=== PATIENT | female | born 1955 | race Caucasian/White ===

== ENCOUNTER 2017-06-21 09:04 | Outpatient (CLI) | payer OTHER ==
--- NOTE | 2017-06-21 10:21 | CT ---
CT ABDOMEN WITH AND WITHOUT CONTRAST: Technique: Multiple axial tomograms were obtained through the abdomen without contrast enhancement. Oral contrast was given. Post contrast images were obtained in the portal venous phase injecting 100 cc of Isovue 370. History: Abdominal pain. Abdominal mass on the left. FINDINGS: Lung bases are clear. On the precontrast exam there is no evidence of urinary tract calcification. There are calcified gal lstones seen with at least one large gallstone seen dependent in the gallbladder measuring up to 2 c m. Gallbladder is mildly distended. No significant pericholecystic edema. Asymmetric density in the posterior left lobe of the liver on post contrast images suggests a focal area of fatty sparring within the liver. The vessels normally course through this region of the live r with no evidence of mass effect. Liver is otherwise unremarkable. Spleen is unremarkable. Pancreas is unremarkable. Adrenal glands appear normal. Kidneys are unremarkable with no evidence of enhanci ng mass. The visualized small bowel loops appear normal. The appendix is partially imaged and appears unremar kable. Entire small and large bowel are not imaged on this abdomen only study. The abdominal aorta is normal caliber. No adenopathy identified. IMPRESSION: 1. Cholelithiasis. 2. Subtle area of asymmetric attenuation in the left lobe of the liver suggests an area of fatty spa rring. 3. Otherwise, no acute process. POS: [facility]
[2017-06-21] MEDS ORDERED: Iopamidol 370 76% 100 ML VIAL ONE (13:43)
== END 2017-06-21 09:05 | disposition home or self-care (01) ==
LOC: CT 09:04
PROVIDERS: ATTEND Family Medicine
DX: R19.00 Intra-abdominal and pelvic swelling, mass and lump, unspecified site (principal); K80.20 Calculus of gallbladder without cholecystitis without obstruction; K76.0 Fatty (change of) liver, not elsewhere classified
CPT/HCPCS: 74170

== ENCOUNTER 2018-03-15 08:19 | Outpatient (CLI) | payer OTHER ==
--- NOTE | 2018-03-15 09:46 | MMO ---
BILATERAL SCREENING MAMMOGRAM: Date: 03/15/18 This is being treated as a baseline study as we could not obtain the previous exams. This patient's mammogram was interpreted with the assistance of computer-aided detection. FINDINGS: Scattered fibroglandular changes of both breasts are noted. Benign calcifications seen in both breast s. There is a nodular density, which is obscured, in upper outer right breast. It measures approximat sally 8-9 mm. IMPRESSION: BIRADS 0: Incomplete: Need Additional Imaging Evaluation and/or Prior Mammograms for Comparison Further imaging required. In this case, focal spot views of the right breast, to be followed by [facility] [place]. The facility will notify patient of need for additional imaging services. POS: [facility]
== END 2018-03-15 08:20 | disposition home or self-care (01) ==
LOC: SCSMAMMO 08:19
PROVIDERS: ATTEND Family Medicine
DX: Z12.31 Encounter for screening mammogram for malignant neoplasm of breast (principal)
CPT/HCPCS: 77067

== ENCOUNTER 2018-04-20 07:56 | Outpatient (CLI) | payer OTHER | END 2018-04-20 07:57 | disposition home or self-care (01) | LOC: BICMAMMO 07:56 | PROVIDERS: ATTEND Family Medicine | DX: R92.2 Inconclusive mammogram (principal) | CPT/HCPCS: G0279 ==

== ENCOUNTER 2018-07-27 07:32 | Day surgery (SDC) | payer OTHER ==
[2018-07-26 13:49] VITALS: BMI 34.6
[2018-07-27 08:10] VITALS: BP 136/78; TEMP 98.4
--- NOTE | 2018-07-27 10:27 | RAD ---
CERVICAL SPINE MYELOGRAM INDICATION: Cervical radiculopathy. RADIATION EXPOSURE DATA: 0.3 minutes, 28 mGy*^m2. PROCEDURE: After informed consent had been obtained, the patient was escorted to the interventional suite and pl aced on the procedural table. [employer] imaging was performed. The patient was placed into a prone posi tion. Skin on the low back was then prepped and draped in the standard sterile fashion and topical a nd regional soft tissue anesthesia was achieved with 1% lidocaine and sodium bicarbonate. L2-3 righ t interlaminar approach was selected, and a 22 gauge needle was uneventfully advanced into the thecal sac with clear color CSF. Subsequently, 9 cc Isovue M-300 was instilled into the thecal sac under r eal time fluoroscopy. Appropriate opacification of thecal sac demonstrated with imaging stored for c onfirmation. The needle was then removed from the patient. The patient tolerated the procedure well and was then transferred to CT to undergo subsequent myelogram. Reference separate report for full details. IMPRESSION: Technically successful cervical myelogram as detailed above. POS: [facility]
--- NOTE | 2018-07-28 07:40 | CT ---
CERVICAL SPINE MYELOGRAM WITH CONTRAST CT CERVICAL SPINE WITH CONTRAST: INDICATION: Cervical radiculopathy, neck pain, numbness. FINDINGS: Multilevel anterior metallic fusion spans the C4 through C7 segment. Anterior metallic PA AND LATERA L VIEWS OF THE CHEST: and screw fixation of C4 and C5 with intervening disk space prosthesis and osse ous incorporation of the iroquois disk space as well as partial osseous fusion of the posterior element s is seen. There is a separate anterior metal plate, which demonstrates an angulated orientation and evidence of a fragmented partial remnant of a prior screw adjacent the hardware of the cephalad aspe ct of the C6 segment. Intervening disk space prosthesis is present with osseous incorporation of the iroquois disk space. There is straightening of the normal cervical curvature. No significant malalig nment otherwise demonstrated. There is no central canal stenosis of C1-2 or C2-3. The C2-3 level reveals uncinate process hypertro phy producing mild right foraminal narrowing. There is no significant left foraminal narrowing. C3-4: No high-grade central canal stenosis. There is minimal right foraminal narrowing due to uncin ate process. Left foramen is patent. C4-5: There is a broad-based left asymmetric osteophyte ridge with mild narrowing of the central can al and ventral effacement of the left hemicord. No significant left foraminal stenosis. There is mi ld narrowing of the right neural foramen due to uncinate process and facet hypertrophy. C5-6: There is a prominent-sized central osteophyte which effaces the ventral aspect of the cervica l spinal cord, centrally. There is mild central canal and mild left foraminal narrowing. Moderate r ight neural foraminal stenosis is present. C6-7: Right asymmetric osteophyte ridge is present. There is moderate right and mild left neural fo raminal stenosis. C7-T1: No high-grade central canal or neural foraminal stenosis. IMPRESSION: Postoperative cervical spine with prominent multilevel degenerative change as outlined above. POS: RADHA
== END 2018-07-27 12:00 | disposition home or self-care (01) ==
LOC: RAD 07:32
PROVIDERS: ATTEND Family Medicine
PROC: B01B1ZZ Fluoroscopy of Spinal Cord using Low Osmolar Contrast (ICD-10-PCS; principal; 2018-07-27)
DX: M54.12 Radiculopathy, cervical region (principal); M25.78 Osteophyte, vertebrae; M48.02 Spinal stenosis, cervical region; Z79.82 Long term (current) use of aspirin; Z79.84 Long term (current) use of oral hypoglycemic drugs; Z79.899 Other long term (current) drug therapy; Z98.1 Arthrodesis status
CPT/HCPCS: 62302; 72126

== ENCOUNTER 2018-11-20 06:08 | Inpatient (IN) | payer OTHER ==
[2018-11-20 07:37] LABS: Hemoglobin 14.2 g/dL (12.0-16.0); Mean Corpuscular HGB CONC 33.9 g/dL (32.0-36.0); Mean Corpuscular Hemoglobin 31.7 pg (27.0-31.0); Mean Corpuscular Volume 93.5 fL (78.0-98.0); Mean Platelet Volume 8.9 fL (7.4-10.4); Platelet Count 236 thou/uL (130-400); RBC Distribution Width 11.5 % (11.5-14.5); Red Blood Cell (RBC) Count 4.47 mill/uL (4.20-5.40); White Blood Cell (WBC) Count 8.7 thou/uL (4.8-10.8)
[2018-11-20] MEDS ORDERED: CEFAZOLIN 2 GM/50 ML BAG ONE (07:52)
[2018-11-20 07:56] LABS: Anion Gap 15 mmol/L (10-20); BUN (Urea Nitrogen) 12 mg/dL (9.8-20.1); Calc. Creatinine Clearance 0 mL/min (70-130); Calcium 9.7 mg/dL (7.8-10.44); Carbon Dioxide 23 mmol/L (23-31); Chloride 106 mmol/L (98-107); Estimated GFR-MDRD 82; Glucose 226 mg/dL (80-115); Sodium 140 mmol/L (136-145)
[2018-11-20] MEDS ORDERED: Fentanyl 100 MCG/2 ML VIAL ONE ×4 (08:31→10:59)
[2018-11-20] MEDS ORDERED: Sodium Chloride 0.9% 10 ML ONE (08:50)
[2018-11-20] MEDS ORDERED: Promethazine HCl 25 MG/ML VIAL IM PRN (09:59)
[2018-11-20] MEDS ORDERED: Promethazine HCl 25 MG/ML VIAL SLOW IVP PRN (09:59)
[2018-11-20] MEDS ORDERED: Ondansetron HCl/PF 4 MG/2 ML Vial IVP PRN (09:59)
[2018-11-20] MEDS ORDERED: Meperidine HCl/PF 25 MG/ML VIAL SLOW IVP PRN (09:59)
--- NOTE | 2018-11-20 10:30 | OP ---
DATE OF PROCEDURE: 11/20/2018 [facility]: Damion Jarrell PA-C. PROCEDURES PERFORMED: Exploration of spinal fusion C4 through C7, attempted removal of hardware C4 through C7, anterior cervical diskectomy C3-C4, interbody arthrodesis, intervertebral biomechanical device, local morselized autograft, demineralized bone matrix, attempted anterior instrumentation C3-C4. DESCRIPTION OF PROCEDURE: The patient was brought to the operating room and intubated. She was positioned supine with the head in modest extension on a gel-filled donut. Incision was reopened and we identified the previous hardware and the extensive osteophytic change from C2 to C4. The hardware was largely incorporated with bone and additionally the C6 and C7 plates were overlapping and seemed to be sharing at least one screw. It would have been quite destructive to continue to remove bone in an effort to remove these plates and we therefore aborted further efforts to remove the hardware. Additionally, the fusion did seem to be quite solid as best we could explore. We turned our attention to the C3-C4 level and debrided extensive anterior osteophytic disease from the C2 level to the C4 level. The osteophytes were completely decompressed. We then removed the intervertebral disk at C3-C4 completely decompressing the neural elements. The bony endplates were then decorticated for the first arthrodesis and appropriate-sized anterior biomechanical PEEK device was brought into the field, filled with demineralized bone matrix and local morselized autograft and tapped in place securely at C3-C4. We next explored the C3 and C4 vertebral bodies in an effort to see if a plate could be placed and distraction pins were used in an effort to explore this. We ultimately concluded that there was not sufficient bony material at the C4 level to accommodate additional screws and therefore no new plate was placed. The wound was extensively irrigated, and maximum hemostasis was secured. The wound closed in anatomic layers over the drain. Job ID: [id number]
[2018-11-20 11:51] VITALS: BMI 32.8
[2018-11-20] MEDS ORDERED: HYDROcodone/Acetaminophen 5/325 mg Tablet PO PRN (12:19)
[2018-11-20] MEDS ORDERED: Acetaminophen 325 MG TAB PO PRN (12:19)
[2018-11-20] MEDS ORDERED: Sodium Chloride 0.65% Nasal 44 ML BOT EA NARE PRN (12:19)
[2018-11-20] MEDS ORDERED: Loperamide HCl 2 MG CAP PO PRN (12:19)
[2018-11-20] MEDS ORDERED: Bisacodyl 10 MG SUPP PR PRN (12:19)
[2018-11-20] MEDS ORDERED: Eucerin (Mineral Oil/Petrolatum,White) 30 gm Jar TOP PRN (12:19)
[2018-11-20] MEDS ORDERED: Diabetic Tussin 200 MG/10 ML UDCUP PO PRN (12:19)
[2018-11-20] MEDS ORDERED: Senokot S 8.6-50 MG TAB PO PRN (12:19)
[2018-11-20] MEDS ORDERED: Cepastat Lozenges 1 LOZ PO PRN (12:19)
[2018-11-20] MEDS ORDERED: Artificial Tear Sol 15 ML BOT EA EYE PRN (12:19)
[2018-11-20] MEDS ORDERED: Zolpidem Tartrate 5 MG TAB PO PRN (12:19)
[2018-11-20] MEDS ORDERED: hydrALAZINE 20 MG/ML VIAL SLOW IVP PRN (12:19)
[2018-11-20] MEDS ORDERED: Loratadine 10 MG TAB PO PRN (12:19)
[2018-11-20] MEDS ORDERED: Calcium Carbonate 500 MG ChewTAB PO PRN (12:19)
[2018-11-20] MEDS ORDERED: Dextrose 50% Abboject 50 ML SYRINGE SLOW IVP PRN (12:20)
[2018-11-20] MEDS ORDERED: Dextrose 5% in Water 1,000 ML IV PRN (12:20)
[2018-11-20] MEDS ORDERED: HumaLOG 300 UNITS/3 ML VIAL SC PRN (12:20)
[2018-11-20] MEDS ORDERED: diphenhydrAMINE 50 MG/ML VIAL IVP PRN (12:24)
[2018-11-20] MEDS ORDERED: diphenhydrAMINE 25 MG CAP PO PRN (12:24)
[2018-11-20] MEDS ORDERED: traMADol HCl 50 MG TAB PO PRN ×2 (12:24)
[2018-11-20] MEDS ORDERED: Morphine 4 MG/ML VIAL SLOW IVP PRN ×2 (12:24→12:29)
[2018-11-20] MEDS ORDERED: Ondansetron PF 4 MG/2 ML Vial IVP PRN (12:24)
[2018-11-20] MEDS ORDERED: tiZANidine HCl 4 MG TAB PO PRN (12:24)
[2018-11-20] MEDS ORDERED: HYDROcodone/Acetaminophen 10/325 mg Tablet PO PRN (12:24)
[2018-11-20] MEDS ORDERED: Mag-Al 1200 mg/1200 mg/30 ML UDCUP PO PRN (12:24)
[2018-11-20] MEDS ORDERED: Milk Of Magnesia 30 ML UDCUP PO PRN (12:24)
[2018-11-20] MEDS: HYDROcodone/Acetaminophen 10/325 mg Tablet PO PRN ×2 (13:01→19:15)
--- NOTE | 2018-11-20 13:12 | PDOC.PN ---
- Subjective Encounter Start Date: 11/20/18 Encounter Start Time: 12:00 -: old records requested/rev Patient seen and examined. pt underwent ACDF today, she has cervical collar in place and she has drain he has headache for now Denies chest pain, dyspnea - Objective Resuscitation Status - Order Detail: 11/20/18 12:23 Resuscitation Status Routine Resuscitation Status: FULL: Full Resuscitation MAR Reviewed: Yes Vital Signs & Weight: Vital Signs (12 hours) Temp Pulse Resp BP Pulse Ox 11/20/18 11:53 98 11/20/18 11:25 97.7 F 55 L 18 114/67 98 Weight Weight 185 lb Result Diagrams: 11/20/18 07:22 11/20/18 07:22 Additional Labs: old [employer] record reviewed Phys Exam - Physical Examination Constitutional: NAD HEENT: PERRLA, moist MMs, sclera anicteric Neck: no JVD, supple cervical colar+, drain+, surgical site with dressing Respiratory: no wheezing, no rales, no rhonchi Cardiovascular: RRR, no significant murmur, no rub Gastrointestinal: soft, non-tender, no distention, positive bowel sounds Musculoskeletal: no edema, pulses present Neurological: non-focal, normal sensation, moves all 4 limbs Lymphatic: no nodes Psychiatric: normal affect, A&O x 3 Skin: no rash, normal turgor Dx/Plan (1) S/P cervical discectomy Code(s): Z98.890 - OTHER SPECIFIED POSTPROCEDURAL STATES Status: Acute (2) Diabetes type 2, controlled Code(s): E11.9 - TYPE 2 DIABETES MELLITUS WITHOUT COMPLICATIONS Status: Chronic (3) Hypertension Code(s): I10 - ESSENTIAL (PRIMARY) HYPERTENSION Status: Chronic (4) Obesity (BMI 30.0-34.9) Code(s): E66.9 - OBESITY, UNSPECIFIED Status: Chronic - Plan cont current plan of care * currently BP is on lower side, will hold her lisinopril * will start metfromin for now * will add hyperglycemia protocol treatment for now * medication reviewed as below * symptomatic treatment * home medication reconciled * code status full code * pepcid for GI prophylaxis. Review of Systems - Review of Systems Constitutional: negative: fever, chills, sweats, weakness, malaise, other ENT: negative: Ear Pain, Ear Discharge, Nose Pain, Nose Discharge, Nose Congestion, Mouth Pain, Mouth Swelling, Throat Pain, Throat Swelling, Other Respiratory: negative: Cough, Dry, Shortness of Breath, Hemoptysis, SOB with Excertion, Pleuritic Pain, Sputum, Wheezing Cardiovascular: negative: chest pain, palpitations, orthopnea, paroxysmal nocturnal dyspnea, edema, light headedness, other Gastrointestinal: negative: Nausea, Vomiting, Abdominal Pain, Diarrhea, Constipation, Melena, Hematochezia, Other Genitourinary: negative: Dysuria, Frequency, Incontinence, Hematuria, Retention , Other Musculoskeletal: Neck Pain. negative: Shoulder Pain, Arm Pain, Back Pain, Hand Pain, Leg Pain, Foot Pain, Other Skin: negative: Rash, Lesions, Duncan, Bruising, Other - Medications/Allergies Allergies/Adverse Reactions: Allergies Allergy/AdvReac Type Severity Reaction Status Date / Time No Known Allergies Allergy Verified 11/17/18 14:08 Medications: Current Medications Acetaminophen (Tylenol) 650 mg PO Q6H PRN PRN Reason: Mild Pain (1-3) Hydrocodone Bitart/Acetaminophen ([place] 5/325) 1 tab PO Q4H PRN PRN Reason: Moderate Pain (4-6) Hydrocodone Bitart/Acetaminophen ([place] 10/325) 1 tab PO Q4H PRN PRN Reason: PAIN (1-3) Hydrocodone Bitart/Acetaminophen ([place] 10/325) 2 tab PO Q4H PRN PRN Reason: PAIN (4-6) Last Admin: 11/20/18 13:01 Dose: 2 tab Al Hydroxide/Mg Hydroxide (Maalox) 30 ml PO Q4H PRN PRN Reason: Heartburn or Indigestion Artificial Tears (Tears Renewed 15ml Bottle) 2 drop EA EYE PRN PRN PRN Reason: Dry Eyes Bisacodyl (Dulcolax) 10 mg [place] DAILYPRN PRN PRN Reason: Constipation Calcium Carbonate (Tums) 1,000 mg PO Q4H PRN PRN Reason: Heartburn or Indigestion Dextrose/Water (Dextrose 50%) 25 gm SLOW IVP PRN PRN PRN Reason: Hypoglycemia Diphenhydramine HCl (Benadryl) 25 mg PO Q6H PRN PRN Reason: Itching Diphenhydramine HCl (Benadryl) 25 mg IVP Q6H PRN PRN Reason: Itching Famotidine (Pepcid) 20 mg PO BID [facility] Glucagon (Glucagon) 1 mg IM PRN PRN PRN Reason: Hypoglycemia Guaifenesin (Robitussin Sf) 200 mg PO Q4H PRN PRN Reason: Cough Hydralazine HCl (Apresoline) 10 mg SLOW IVP Q4H PRN PRN Reason: SBP > 180 and HR < 70 Dextrose/Water (D5w) 1,000 mls @ 0 mls/hr IV .Q0M PRN PRN Reason: Hypoglycemia Sodium Chloride (Normal Saline 0.9%) 1,000 mls @ 75 mls/hr IV .[id number] [facility] Cefazolin Sodium/Dextrose 2 gm (/ Device) 50 mls @ 100 mls/hr IVPB 0100,0900, 1700 [facility] Stop: 11/21/18 01:29 Insulin Human Lispro (Humalog) 0 units SC .MODERATE SLIDING SC PRN PRN Reason: Moderate Correctional Scale Insulin Human Lispro (Humalog) 0 units SC .BEDTIME SLIDING SC PRN PRN Reason: Bedtime Correctional Scale Lisinopril (Zestril) 30 mg PO DAILY [facility] Loperamide HCl (Imodium) 2 mg PO PRN PRN PRN Reason: Diarrhea/Loose Stools Loratadine (Claritin) 10 mg PO DAILYPRN PRN PRN Reason: Sinus Symptoms Magnesium Hydroxide (Milk Of Magnesium) 30 ml PO Q12H PRN PRN Reason: Constipation Metformin HCl (Glucophage) 1,000 mg PO BID[facility] Mineral Oil/White Petrolatum (Eucerin Cream) 0 gm TOP BIDPRN PRN PRN Reason: Dry Skin Morphine Sulfate (Morphine) 4 mg SLOW IVP Q1H PRN PRN Reason: SEVERE BREAKTHROUGH PAIN Morphine Sulfate (Morphine) 2 mg SLOW IVP Q1H PRN PRN Reason: Moderate Breakthrough Pain Ondansetron HCl (Zofran) 4 mg IVP Q24H PRN PRN Reason: Nausea/Vomiting Senna/Docusate Sodium (Senokot S) 2 tab PO BID PRN PRN Reason: Constipation Sodium Chloride ([place] Nasal [place] 0.65%) 0 ml EA NARE QIDPRN PRN PRN Reason: Nasal Congestion Sodium Chloride (Flush - Normal Saline) 10 ml IVF PRN PRN PRN Reason: Saline Flush Throat Lozenges (Cepastat Lozenges) 1 kofi PO Q2H PRN PRN Reason: Sore Throat Tizanidine HCl (Zanaflex) 4 mg PO Q6H PRN PRN Reason: MUSCLE SPASM Tramadol HCl (Ultram) 50 mg PO Q6H PRN PRN Reason: PAIN (1-3) Tramadol HCl (Ultram) 100 mg PO Q6H PRN PRN Reason: PAIN (4-6) Zolpidem Tartrate (Ambien) 5 mg PO HSPRN PRN PRN Reason: Insomnia
[2018-11-20] MEDS ORDERED: Glycopyrrolate 0.2 MG/ML 5 ML SYRINGE ONE (16:36)
[2018-11-20] MEDS ORDERED: Rocuronium Bromide 10 MG/ML (10ML VIAL) ONE (16:36)
[2018-11-20] MEDS ORDERED: Dexamethasone 20 MG/5 ML VIAL ONE (16:36)
[2018-11-20] MEDS ORDERED: Ketorolac Tromethamine 30 MG/ML VIAL ONE (16:36)
[2018-11-20] MEDS ORDERED: Lidocaine 1% PF 5 ML VIAL ONE (16:36)
[2018-11-20] MEDS ORDERED: Ondansetron PF 4 MG/2 ML Vial ONE (16:36)
[2018-11-20] MEDS ORDERED: PROPOFOL 200 MG/20 ML VIAL ONE (16:36)
[2018-11-20] MEDS: metFORMIN 500 MG TAB PO SCH (17:17)
[2018-11-20] MEDS: CEFAZOLIN 2 GM/50 ML-DEXTROSE 2 GM in Premix Bag 1 BAG IVPB SCH (17:18)
[2018-11-20] MEDS: Sodium Chloride 0.9% 1,000 ML IV SCH (18:50)
[2018-11-20] MEDS: Famotidine 20 MG TAB PO SCH (20:43)
[2018-11-20] MEDS: HumaLOG 300 UNITS/3 ML VIAL SC PRN (20:46)
[2018-11-21] MEDS: CEFAZOLIN 2 GM/50 ML-DEXTROSE 2 GM in Premix Bag 1 BAG IVPB SCH (00:38)
[2018-11-21] MEDS: Sodium Chloride 0.9% 1,000 ML IV SCH ×2 (00:42→04:36)
[2018-11-21] MEDS: HumaLOG 300 UNITS/3 ML VIAL SC PRN (06:06)
[2018-11-21 07:57] VITALS: BP 135/79; TEMP 98.7
--- NOTE | 2018-11-21 08:03 | DIS ---
DATE OF ADMISSION: 11/20/2018 DATE OF DISCHARGE: HOSPITAL COURSE: The patient is a 63-year-old female, who underwent C3-C4 ACDF. Unfortunately secondary to prior hardware unable to be removed, she was unable to get anterior plating. She was once decompressed and interbody device was placed. She was placed in a cervical collar. She should wear the cervical collar at all times for the next 6 weeks. The patient was provided with a Churdan collar for showering. Following her surgery, she was transitioned to the [facility] floor, where her pain was well controlled with p.o. medications, she was tolerating a soft diet, and voiding appropriately. She has been ambulating easily throughout the department. Her SHASHI drain had minimal output overnight approximately 20 mL and was removed on postoperative day #1. On my exam this morning, she is awake, alert, in no acute distress. She has free active range of motion of all extremities, 5/5 strength. Her incision is dry and soft. She is wearing her cervical collar. We will plan to dismiss the patient back to the intermediate. She has been provided with scripts for Tylenol No. 3, and is allowed to take p.r.n. [id number] ibuprofen. I have also provided her with orders for cervical collar at all times, Churdan collar for showering, soft diet, and p.r.n. incentive spirometer. We will plan to follow up in two weeks. The patient has been provided with instructions. Job ID: [id number]
[2018-11-21] MEDS: metFORMIN 500 MG TAB PO SCH (08:37)
[2018-11-21] MEDS: Famotidine 20 MG TAB PO SCH (08:38)
[2018-11-21] MEDS: HYDROcodone/Acetaminophen 10/325 mg Tablet PO PRN (08:42)
[2018-11-21] MEDS ORDERED: Lisinopril 20 MG TAB PO SCH (09:00)
--- NOTE | 2018-11-21 10:00 | PDOC.PN ---
- Subjective Encounter Start Date: 11/21/18 Encounter Start Time: 08:40 Patient seen and examined. No new complaints. No overnight events - Objective Resuscitation Status - Order Detail: 11/20/18 12:23 Resuscitation Status Routine Resuscitation Status: FULL: Full Resuscitation MAR Reviewed: Yes Vital Signs & Weight: Vital Signs (12 hours) Temp Pulse Resp BP BP Pulse Ox 11/21/18 08:37 135/79 11/21/18 07:57 98.7 F 71 12 135/79 93 L 11/21/18 04:00 98.1 F 92 17 125/74 94 L 11/21/18 00:00 98.3 F 90 18 110/65 95 Weight Weight 185 lb I&O: 11/20/18 11/21/18 11/22/18 06:59 06:59 06:59 Intake Total 3750 Output Total 35 10 Balance 3715 -10 Result Diagrams: 11/20/18 07:22 11/20/18 07:22 Additional Labs: Accuchecks 11/21/18 11/20/18 11/20/18 05:57 20:39 16:31 POC Glucose 230 H 290 H 285 H Phys Exam - Physical Examination Constitutional: NAD HEENT: PERRLA, moist MMs, sclera anicteric Neck: no JVD, supple cervical collar, drain in place Respiratory: no wheezing, no rales, no rhonchi Cardiovascular: RRR, no significant murmur, no rub Gastrointestinal: soft, non-tender, no distention, positive bowel sounds Musculoskeletal: no edema, pulses present Neurological: non-focal, normal sensation Psychiatric: normal affect, A&O x 3 Skin: no rash, normal turgor Dx/Plan (1) S/P cervical discectomy Code(s): Z98.890 - OTHER SPECIFIED POSTPROCEDURAL STATES Status: Acute (2) Diabetes type 2, controlled Code(s): E11.9 - TYPE 2 DIABETES MELLITUS WITHOUT COMPLICATIONS Status: Chronic (3) Hypertension Code(s): I10 - ESSENTIAL (PRIMARY) HYPERTENSION Status: Chronic (4) Obesity (BMI 30.0-34.9) Code(s): E66.9 - OBESITY, UNSPECIFIED Status: Chronic - Plan cont current plan of care * overall pt is doing well * medication reviewed as below * symptomatic treatment * resume home meds on discharge * pt is planned for discharge by primary team. Review of Systems - Review of Systems ENT: negative: Ear Pain, Ear Discharge, Nose Pain, Nose Discharge, Nose Congestion, Mouth Pain, Mouth Swelling, Throat Pain, Throat Swelling, Other Respiratory: negative: Cough, Dry, Shortness of Breath, Hemoptysis, SOB with Excertion, Pleuritic Pain, Sputum, Wheezing Cardiovascular: negative: chest pain, palpitations, orthopnea, paroxysmal nocturnal dyspnea, edema, light headedness, other Gastrointestinal: negative: Nausea, Vomiting, Abdominal Pain, Diarrhea, Constipation, Melena, Hematochezia, Other Genitourinary: negative: Dysuria, Frequency, Incontinence, Hematuria, Retention , Other Musculoskeletal: negative: Neck Pain, Shoulder Pain, Arm Pain, Back Pain, Hand Pain, Leg Pain, Foot Pain, Other Skin: negative: Rash, Lesions, Duncan, Bruising, Other - Medications/Allergies Allergies/Adverse Reactions: Allergies Allergy/AdvReac Type Severity Reaction Status Date / Time No Known Allergies Allergy Verified 11/17/18 14:08 Medications: Current Medications Acetaminophen (Tylenol) 650 mg PO Q6H PRN PRN Reason: Mild Pain (1-3) Hydrocodone Bitart/Acetaminophen ([place] 5/325) 1 tab PO Q4H PRN PRN Reason: Moderate Pain (4-6) Hydrocodone Bitart/Acetaminophen ([place] 10/325) 1 tab PO Q4H PRN PRN Reason: PAIN (1-3) Hydrocodone Bitart/Acetaminophen ([place] 10/325) 2 tab PO Q4H PRN PRN Reason: PAIN (4-6) Last Admin: 11/21/18 08:42 Dose: 2 tab Al Hydroxide/Mg Hydroxide (Maalox) 30 ml PO Q4H PRN PRN Reason: Heartburn or Indigestion Artificial Tears (Tears Renewed 15ml Bottle) 2 drop EA EYE PRN PRN PRN Reason: Dry Eyes Bisacodyl (Dulcolax) 10 mg [place] DAILYPRN PRN PRN Reason: Constipation Calcium Carbonate (Tums) 1,000 mg PO Q4H PRN PRN Reason: Heartburn or Indigestion Dextrose/Water (Dextrose 50%) 25 gm SLOW IVP PRN PRN PRN Reason: Hypoglycemia Diphenhydramine HCl (Benadryl) 25 mg PO Q6H PRN PRN Reason: Itching Diphenhydramine HCl (Benadryl) 25 mg IVP Q6H PRN PRN Reason: Itching Famotidine (Pepcid) 20 mg PO BID [facility] Last Admin: 11/21/18 08:38 Dose: 20 mg Glucagon (Glucagon) 1 mg IM PRN PRN PRN Reason: Hypoglycemia Guaifenesin (Robitussin Sf) 200 mg PO Q4H PRN PRN Reason: Cough Hydralazine HCl (Apresoline) 10 mg SLOW IVP Q4H PRN PRN Reason: SBP > 180 and HR < 70 Dextrose/Water (D5w) 1,000 mls @ 0 mls/hr IV .Q0M PRN PRN Reason: Hypoglycemia Sodium Chloride (Normal Saline 0.9%) 1,000 mls @ 75 mls/hr IV .[id number] [facility] Last Admin: 11/21/18 04:36 Dose: Not Given Insulin Human Lispro (Humalog) 0 units SC .MODERATE SLIDING SC PRN PRN Reason: Moderate Correctional Scale Last Admin: 11/20/18 17:18 Dose: 6 units Insulin Human Lispro (Humalog) 0 units SC .BEDTIME SLIDING SC PRN PRN Reason: Bedtime Correctional Scale Last Admin: 11/21/18 06:06 Dose: 2 unit Lisinopril (Zestril) 30 mg PO DAILY [facility] Last Admin: 11/21/18 08:37 Dose: 30 mg Loperamide HCl (Imodium) 2 mg PO PRN PRN PRN Reason: Diarrhea/Loose Stools Loratadine (Claritin) 10 mg PO DAILYPRN PRN PRN Reason: Sinus Symptoms Magnesium Hydroxide (Milk Of Magnesium) 30 ml PO Q12H PRN PRN Reason: Constipation Metformin HCl (Glucophage) 1,000 mg PO BID-[facility] Last Admin: 11/21/18 08:37 Dose: 1,000 mg Mineral Oil/White Petrolatum (Eucerin Cream) 0 gm TOP BIDPRN PRN PRN Reason: Dry Skin Morphine Sulfate (Morphine) 4 mg SLOW IVP Q1H PRN PRN Reason: SEVERE BREAKTHROUGH PAIN Morphine Sulfate (Morphine) 2 mg SLOW IVP Q1H PRN PRN Reason: Moderate Breakthrough Pain Ondansetron HCl (Zofran) 4 mg IVP Q24H PRN PRN Reason: Nausea/Vomiting Senna/Docusate Sodium (Senokot S) 2 tab PO BID PRN PRN Reason: Constipation Sodium Chloride ([place] Nasal [place] 0.65%) 0 ml EA NARE QIDPRN PRN PRN Reason: Nasal Congestion Sodium Chloride (Flush - Normal Saline) 10 ml IVF PRN PRN PRN Reason: Saline Flush Throat Lozenges (Cepastat Lozenges) 1 kofi PO Q2H PRN PRN Reason: Sore Throat Tizanidine HCl (Zanaflex) 4 mg PO Q6H PRN PRN Reason: MUSCLE SPASM Tramadol HCl (Ultram) 50 mg PO Q6H PRN PRN Reason: PAIN (1-3) Tramadol HCl (Ultram) 100 mg PO Q6H PRN PRN Reason: PAIN (4-6) Zolpidem Tartrate (Ambien) 5 mg PO HSPRN PRN PRN Reason: Insomnia
== END 2018-11-21 10:32 | disposition home or self-care (01) | DRG 473 ==
LOC: SDC 06:08 → SURG A 11:30
PROVIDERS: ADMIT Neurological Surgery; ATTEND Neurological Surgery
PROC: 0RG10A0 Fusion of Cervical Vertebral Joint with Interbody Fusion Device, Anterior Approach, Anterior Column, Open Approach (ICD-10-PCS; principal; 2018-11-20)
PROC: 0RT30ZZ Resection of Cervical Vertebral Disc, Open Approach (ICD-10-PCS; 2018-11-20)
DX: M47.892 Other spondylosis, cervical region (principal); I10 Essential (primary) hypertension; E11.9 Type 2 diabetes mellitus without complications; E78.2 Mixed hyperlipidemia; E66.9 Obesity, unspecified; Z68.32 Body mass index [BMI] 32.0-32.9, adult
CPT/HCPCS: 36415; 36416; 76000; 80048; 85027; 93005; 93010; C1776; J0131; J1100; J1885; J2001; J2405; J2704; J3010; J3490

== ENCOUNTER 2018-12-05 13:22 | Outpatient (CLI) | payer OTHER ==
--- NOTE | 2018-12-05 14:33 | RAD ---
CERVICAL SPINE SERIES THREE VIEWS: HISTORY: Postop. FINDINGS: The vertebral bodies are normal in height. Prominent anterior osteophytic change is seen at C2-C3. Markers of a disk implant are seen at the C3-C4 level. The anterior-most markers, along the superior margin of an anterior plate and screws, are seen at the C4-C5 level. It appears that a portion of t his plate has been removed and replaced with a second separate plate and screws, seen at the C6-C7 le maxime. There is a broken portion of an old screw also seen within the vertebral body at C6. IMPRESSION: Postoperative changes of the spine. POS: [facility]
== END 2018-12-05 13:23 | disposition home or self-care (01) ==
LOC: TBSIIMAG 13:22
PROVIDERS: ATTEND Neurological Surgery
DX: M54.12 Radiculopathy, cervical region (principal); Z98.890 Other specified postprocedural states
CPT/HCPCS: 72040

== ENCOUNTER 2019-01-18 14:28 | Outpatient (CLI) | payer OTHER ==
--- NOTE | 2019-01-18 14:51 | RAD ---
XR Cerv Sp Ap Lat STANDARD History: [M 55.12 cervical radiculopathy] Comparison: Radiograph 12/05/2018 Findings: No acute fracture or malalignment. Similar appearance of retained screw within the C5/C6 in terspace. Open-mouth odontoid view is normal. No new listhesis. Unchanged appearance of the cervical fusion and discectomy changes. Impression: Unchanged postoperative changes of the spine.
== END 2019-01-18 14:29 | disposition home or self-care (01) ==
LOC: TBSIIMAG 14:28
PROVIDERS: ATTEND Neurological Surgery
DX: M54.12 Radiculopathy, cervical region (principal); Z98.890 Other specified postprocedural states
CPT/HCPCS: 72040

== ENCOUNTER 2019-04-19 12:54 | Outpatient (CLI) | payer OTHER ==
--- NOTE | 2019-04-19 15:24 | RAD ---
CERVICAL SPINE 3 VIEWS: HISTORY: Cervical radiculopathy. COMPARISON: 01/18/2019, neck stiffness and pain with headaches. COMPARISON: 01/18/2019. FINDINGS: Anterior cervical fusion changes at C4, C5, C6, and C7 with fracture of the anterior metal plate at a pproximately the C6 level with some malalignment of the plate. At least one of the screws is fractur ed. There is some generalized prevertebral soft tissue swelling. Appearance is stable from prior st udy. No significant malalignment. IMPRESSION: Anterior metal plate and screws as above. Extensive postoperative changes. Prevertebral stable soft tissue swelling. No significant malalignment. Stable from prior exam, 01/18/2019. POS: [facility]
== END 2019-04-19 12:55 | disposition home or self-care (01) ==
LOC: TBSIIMAG 12:54
PROVIDERS: ATTEND Neurological Surgery
DX: M54.12 Radiculopathy, cervical region (principal); Z98.890 Other specified postprocedural states
CPT/HCPCS: 72040

== ENCOUNTER 2019-04-25 08:59 | Outpatient (CLI) | payer OTHER ==
--- NOTE | 2019-04-26 08:40 | MMO ---
Bilateral MAMMO Bilat Screen DDI. CLINICAL HISTORY: Patient is 63 years old and is seen for screening. The patient has no family history of breast cancer. The patient has no personal history of cancer. VIEWS: The views performed were: bilateral craniocaudal and bilateral mediolateral oblique. FILMS COMPARED: The present examination has been compared to prior imaging studies performed at [facility] on 03/15/2018, and at [facility] on 04/20/2018. This study has been interpreted with the assistance of computer-aided detection. MAMMOGRAM FINDINGS: The breasts are heterogeneously dense, which could obscure a lesion on mammography. Finding 1: There are stable benign appearing calcifications seen in both breasts. Finding 2: There are multiple stable equal density nodules of varying size seen in both breasts. There are no suspicious masses, suspicious calcifications, or new areas of architectural distortion. IMPRESSION: THERE IS NO MAMMOGRAPHIC EVIDENCE OF MALIGNANCY. A ROUTINE FOLLOW-UP MAMMOGRAM IN 1 YEAR IS RECOMMENDED. ACR BI-RADS Category 2 - Benign finding MAMMOGRAPHY NOTE: 1. A negative mammogram report should not delay a biopsy if a dominant of clinically suspicious mass is present. 2. Approximately 10% to 15% of breast cancers are not detected by mammography. 3. Adenosis and dense breasts may obscure an underlying neoplasm. Reported by: WALKER MATHEW MD Electonically Signed: [id number]
== END 2019-04-25 09:00 | disposition home or self-care (01) ==
LOC: SCSMAMMO 08:59
PROVIDERS: ATTEND Family Medicine
DX: Z12.31 Encounter for screening mammogram for malignant neoplasm of breast (principal)
CPT/HCPCS: 77067

== ENCOUNTER 2019-06-28 10:54 | Outpatient (CLI) | payer OTHER ==
--- NOTE | 2019-06-28 12:13 | RAD ---
CERVICAL SPINE 5 VIEWS: HISTORY: Cervical spondylosis. Postop followup. COMPARISON: 04/19/2019 cervical spine films. FINDINGS: Anterior fusion changes are again noted. Plate and screws are again seen at C4, C5, C6, and C7 with disk implants at C3-4, C4-5, C5-6, and C6-7. Posterior alignment is maintained with spondylitic brewster ge prominent at C4-5 and C5-6 and C6-7. No change in alignment. There appears to be fracture of one of these superior screws I the lower plate, probably the right sc rew. This is unchanged from 04/19/2019. IMPRESSION: Stable postop findings. POS: [facility]
== END 2019-06-28 10:55 | disposition home or self-care (01) ==
LOC: TBSIIMAG 10:54
PROVIDERS: ATTEND Neurological Surgery
DX: M47.12 Other spondylosis with myelopathy, cervical region (principal); Z98.890 Other specified postprocedural states
CPT/HCPCS: 72040